=== PATIENT | female | born 1955 | race Caucasian/White ===

== ENCOUNTER → 2024-06-28 06:36 | Outpatient (REF) | payer MEDICARE, BC, SELFPAY | LOC: MRI 3T 06:36 | PROVIDERS: ATTENDING PHYSICIAN Orthopaedic Surgery; FAMILY PHYSICIAN Internal Medicine | DX: M25.512 Pain in left shoulder (principal) | CPT/HCPCS: 73221 ==

== ENCOUNTER → 2024-07-07 10:57 | Outpatient (REF) | payer MEDICARE, BC, SELFPAY | LOC: HWRAD 10:57 | PROVIDERS: ATTENDING PHYSICIAN Internal Medicine | DX: M81.0 Age-related osteoporosis without current pathological fracture (principal) | CPT/HCPCS: 77080 ==

== ENCOUNTER 2024-09-24 08:54 | Emergency (ER) | payer MEDICARE, BC, SELFPAY ==
[2024-09-24 09:05] VITALS: BP 152/84
[2024-09-24 09:26] VITALS: BMI 21.3
[2024-09-24 09:28] VITALS: BP 141/80
--- NOTE | 2024-09-24 09:29 | ED.GENMED ---
History of Present Illness
<Chela Nava MD, Resident - Last Filed: 09/24/24 12:50>
General
Chief Complaint: Rectal Bleeding
Time Seen by Provider: 09/24/24 09:21
History of Present Illness
History of Present Illness:
This is a 69 year old female patient with PMH of HTN, HLD and hypothyriodism who presents to the ED with concerns of rectal bleedings. She states that early this morning she had a bowel movement where she noticed a large amount of bright red blood
in her stool. She has not experienced an similar episode previously. She had no strain or pain on defecation. She did not have any diarrhea or constipation leading up the symptom. She denies any fever, chills or abdominal pain. She states the last
time she had a colonoscopy was in 2019 and was told she had hemorrhoids.
Past History
<Chela Nava MD, Resident - Last Filed: 09/24/24 12:50>
Past History
ED Past Medical History: HTN and Hypothyroidism
ED Past Surgical History: None
Social History
Tobacco: Non-smoker
Alcohol: None
Personal:
Living: with family
Employment: Employed
Family History
Family History: Other (Noncontributory)
Phy Exam
<Chela Nava MD, Resident - Last Filed: 09/24/24 12:50>
General Physical Exam
General Presentation: well appearing and no apparent distress
Cardiovascular Exam
Cardiovascular Exam: regular rate/rhythm and no murmur
Heart Sounds: normal
Pulmonary Exam
Pulmonary Exam: lungs clear, no respiratory distress and no crackles
Gastrointestinal Exam
Gastrointestinal Exam: non tender, soft and non distended
Neurological Exam
Neurological Exam: oriented x3
Musculoskeletal Exam
Musculoskeletal Exam: no edema
Skin Exam
Skin Exam: warm/dry
Psychiatric Exam
Psychiatric Exam: normal mood/affect
Course
<Chela Opal Nava MD, Resident - Last Filed: 09/24/24 12:50>
Orders/Labs/Results
Orders:
Orders
09/24/24 10:34
CBC/With Diff [Complete Blood Count/With Diff] Urgent
CMP [Comprehensive Metabolic Panel] Urgent
Abnormal Lab Results
09/24/24
10:34
WBC 4.3 L 10^3/uL
(4.8-10.8)
RBC 3.81 L 10^6/uL
(4.20-5.40)
MCH 31.5 H pg
(27.0-31.0)
MCHC 32.3 L g/dL
(33.0-37.0)
Absolute Lymphs (auto) 0.7 L 10^3/uL
(1.2-3.4)
Lymphocytes % 15.5 L %
(20.5-51.1)
Carbon Dioxide 31 H mmol/L
(22-30)
BUN 23 H mg/dl
(7-17)
09/24/24 10:34
09/24/24 10:34
Vital Signs
Initial and Last Documented VS:
Initial Vital Signs
Temp Pulse Resp BP Pulse Ox
98.4 F 81 16 152/84 99
09/24/24 09:05 09/24/24 09:05 09/24/24 09:05 09/24/24 09:05 09/24/24 09:05
Last Documented Vital Signs
Temp Pulse Resp BP Pulse Ox
98.4 F 74 16 124/66 98
09/24/24 09:05 09/24/24 11:57 09/24/24 11:57 09/24/24 11:57 09/24/24 11:57
<Manuela Fairbanks MD - Last Filed: 09/24/24 14:02>
Orders/Labs/Results
Orders:
Orders
09/24/24 10:34
CBC/With Diff [Complete Blood Count/With Diff] Urgent
CMP [Comprehensive Metabolic Panel] Urgent
Abnormal Lab Results
09/24/24
10:34
WBC 4.3 L 10^3/uL
(4.8-10.8)
RBC 3.81 L 10^6/uL
(4.20-5.40)
MCH 31.5 H pg
(27.0-31.0)
MCHC 32.3 L g/dL
(33.0-37.0)
Absolute Lymphs (auto) 0.7 L 10^3/uL
(1.2-3.4)
Lymphocytes % 15.5 L %
(20.5-51.1)
Carbon Dioxide 31 H mmol/L
(22-30)
BUN 23 H mg/dl
(7-17)
09/24/24 10:34
09/24/24 10:34
Vital Signs
Initial and Last Documented VS:
Initial Vital Signs
Temp Pulse Resp BP Pulse Ox
98.4 F 81 16 152/84 99
09/24/24 09:05 09/24/24 09:05 09/24/24 09:05 09/24/24 09:05 09/24/24 09:05
Last Documented Vital Signs
Temp Pulse Resp BP Pulse Ox
98.4 F 74 16 124/66 98
09/24/24 09:05 09/24/24 11:57 09/24/24 11:57 09/24/24 11:57 09/24/24 11:57
<Chela Opal Nava MD, Resident - Last Filed: 09/24/24 12:50>
*Critical Care Note
Total Time (30-74mins, 75-104mins- exclusive of procedures): Not Applicable
<Chela Nava MD, Resident - Last Filed: 09/24/24 12:50>
Update Note
Update Note:
Patient was afebrile and hemodynamically stable on exam. No signs of active bleeding. CBC/CMP without any acute abnormalities. After observation, patient did not have any signs of active bleeding and no furher bloody stool episodes. GI front end software engineer
and GI head control clerk made aware of patient for follow up appt. She is stable for discharge with instructions to follow up with GI for further care and management.
ED Attending Note
<Chela Nava MD, Resident - Last Filed: 09/24/24 12:50>
-
Portions of this chart may have been created with voice recognition software.� Occasional wrong word or��sound alike� substitutions may have occurred due to the inherent limitations of voice recognition software.
<Manuela Fairbanks MD - Last Filed: 09/24/24 14:02>
ED Attending Note
Patient seen and examined by attending physician: Yes
I performed a history and physical exam of patient and discussed management with resident, I reviewed resident's note and agree with documented findings and plan of care.: Yes
ED Attending Note:
Patient appears well and comfortable. She denies lightheadedness, chest pain or shortness of breath. She is on no blood thinners including aspirin and Plavix. She reports 1 episode of bloody loose bowel movement that occurred at 7:30 AM this
morning. Since then, she has had no further bleeding. On exam, she is breathing comfortably and heart sounds regular. Abdomen is soft and nontender throughout. On rectal exam, patient does have an external hemorrhoid but it is not bloody. No
active bleeding in rectal vault on rectal exam. We will get some basic blood work. If patient continues to have no further bleeding, I feel she could safely go home with prompt GI follow-up.
Discharge Plan
Departure
Patient Disposition: Home (Routine Discharge)
Date of Disposition: 09/24/24
Time of Disposition: 11:48
Patient with high blood pressure during this ER visit?: Yes
Discharge Problem:
Hemorrhoids
Prescriptions:
No Action
levothyroxine [Synthroid] 88 mcg Tablet
88 mcg PO DAILY
lisinopril 5 mg Tablet
5 mg PO DAILY
atorvastatin 10 mg tablet
10 mg PO DAILY
boron 6 mg Tablet
250 mg PO DAILY
Theragen Tablet
1 tab PO DAILY
ibuprofen [Advil] 200 mg Tablet
400 mg PO Q8HPRN PRN (Reason: mild pain)
cholecalciferol (vitamin D3) [Vitamin D3] 25 mcg (1,000 unit) Tablet
25 mcg PO DAILY
Referrals:
Bryon Bernstein MD [Family Provider] -
Demetri Louise DO [Active] -
Activity Restrictions/Additional Instructions:
If experiencing any symptoms such as severe abdominal pain, worsening rectal bleeding or vomiting please return to the ER. Follow up with GI doctor for further care of hemorrhoids.
Interventions
Interventions:
*Risk Screen - Suicide Last Done: 09/24/24 09:06
*Neglect/Abuse Screening Last Done: 09/24/24 09:06
*ED COVID-19 Vaccine History Last Done: 09/24/24 09:24
*Nursing Disposition Last Done: 09/24/24 11:57
KN-[id number] Assessment Last Done: 09/24/24 09:25
ED- Cardiac Assessment Last Done: 09/24/24 09:30
ED- Pulmonary Assessment Last Done: 09/24/24 09:30
Discharge Date and Time
Discharge Date/Time: 09/24/24 12:00
Print Language: [id number]
[2024-09-24 10:00] VITALS: BP 150/82
[2024-09-24 10:51] LABS: % Basophils 0.9 % (0-2); % Eosinophils 3.3 % (0-6); % Immature Granulocytes 0.5 % (0-0.5); % Lymphocytes 15.5 % (20.5-51.1); % Monocytes 8.7 % (1.7-9.3); % Neutrophils 71.1 % (42.2-75.2); Absolute Eosinophils 0.1 10^3/uL (0-0.7); Absolute Lymphocytes 0.7 10^3/uL (1.2-3.4); Absolute Monocytes 0.4 10^3/uL (0.1-0.6); Hematocrit 37.2 % (37.0-47.0); Mean Corp Hgb Conc. 32.3 g/dL (33.0-37.0); Mean Corpuscular Hgb 31.5 pg (27.0-31.0); Mean Corpuscular Volume 97.6 fL (81.0-99.0); Mean Platelet Volume 8.6 fL (7.4-10.4); Nucleated Red Blood Cells % 0 %; Platelet Count 252 10^3/uL (130-400); Red Blood Cell Count 3.81 10^6/uL (4.20-5.40); Red Cell Dist. Width 12.4 % (11.5-14.5); White Blood Cell Count 4.3 10^3/uL (4.8-10.8)
[2024-09-24 11:00] VITALS: BP 124/66
[2024-09-24 11:05] LABS: ALT (SGPT) 20 U/L (0-35); AST (SGOT) 31 U/L (14-36); Albumin 4.1 g/dl (3.5-5.0); Alkaline Phosphatase 63 U/L (38-126); Blood Urea Nitrogen 23 mg/dl (7-17); Calcium 9.5 mg/dl (8.4-10.2); Carbon Dioxide 31 mmol/L (22-30); Chloride 106 mmol/L (98-107); Estimated Creatinine Clearance 51 ml/min; Glucose 99 mg/dl (70-99); Potassium 4.8 mmol/L (3.5-5.1); Sodium 142 mmol/L (135-145); Total Bilirubin 0.5 mg/dl (0.2-1.3); Total Protein 6.4 g/dl (6.3-8.2); eGFR > 60.00
[2024-09-24 11:57] VITALS: BP 124/66
== END 2024-09-24 12:00 | disposition home or self-care (01) ==
LOC: EMR 08:54
PROVIDERS: Student in an Organized Health Care Education/Training Program; EMERGENCY PHYSICIAN Emergency Medicine; FAMILY PHYSICIAN Specialist
DX: K64.4 Residual hemorrhoidal skin tags (principal); E03.9 Hypothyroidism, unspecified; I10 Essential (primary) hypertension; E78.5 Hyperlipidemia, unspecified
CPT/HCPCS: 99283; 80053; 85025

== ENCOUNTER 2024-11-04 06:14 | Day surgery (SDC) | payer MEDICARE, BC, SELFPAY | END 2024-11-04 14:36 | disposition home or self-care (01) | LOC: GI 06:14 | PROVIDERS: ATTENDING PHYSICIAN Internal Medicine | DX: K92.1 Melena (principal); K57.30 Diverticulosis of large intestine without perforation or abscess without bleeding; D49.0 Neoplasm of unspecified behavior of digestive system; D12.0 Benign neoplasm of cecum | CPT/HCPCS: 45380; 88305 ==

== ENCOUNTER → 2024-11-15 12:02 | Outpatient (REF) | payer MEDICARE, BC, SELFPAY | LOC: SDSPAT 12:02 | PROVIDERS: ATTENDING PHYSICIAN Surgery; FAMILY PHYSICIAN Internal Medicine | DX: C21.8 Malignant neoplasm of overlapping sites of rectum, anus and anal canal (principal) | CPT/HCPCS: 36415; 93005 ==

== ENCOUNTER 2024-11-17 06:23 | Day surgery (SDC) | payer MEDICARE, BC, SELFPAY ==
[2024-11-15 13:04] VITALS: BMI 19.5
[2024-11-17 07:45] VITALS: BP 141/85
[2024-11-17] MEDS: NORMOSOL-R/PLASMALYTE-A 1000 IV (07:55)
[2024-11-17 07:57] VITALS: BMI 19.5
[2024-11-17] MEDS: TYLENOL 1000 MG PO (08:03)
[2024-11-17 09:35] VITALS: BP 143/72
[2024-11-17 09:38] VITALS: BP 143/67
[2024-11-17 09:45] VITALS: BP 141/68
[2024-11-17 10:00] VITALS: BP 141/70
== END 2024-11-17 11:05 | disposition home or self-care (01) ==
LOC: SDS 06:23
PROVIDERS: ATTENDING PHYSICIAN Surgery; FAMILY PHYSICIAN Internal Medicine
DX: C21.8 Malignant neoplasm of overlapping sites of rectum, anus and anal canal (principal)
CPT/HCPCS: 45990; 88307; 88341; 88342

== ENCOUNTER → 2024-11-30 09:06 | Outpatient (REF) | payer MEDICARE, BC, SELFPAY | LOC: RAD 09:06 | PROVIDERS: ATTENDING PHYSICIAN Surgery; FAMILY PHYSICIAN Internal Medicine | DX: C21.0 Malignant neoplasm of anus, unspecified (principal) | CPT/HCPCS: 71260; 74160; Q9967 ==

== ENCOUNTER → 2024-12-01 11:48 | Outpatient (REF) | payer MEDICARE, BC, SELFPAY | LOC: MRI 3T 11:48 | PROVIDERS: ATTENDING PHYSICIAN Surgery; FAMILY PHYSICIAN Internal Medicine | DX: C21.0 Malignant neoplasm of anus, unspecified (principal) | CPT/HCPCS: 72197; A9575 ==

== ENCOUNTER 2024-12-15 06:05 | Day surgery (SDC) | payer MEDICARE, BC, SELFPAY ==
[2024-12-15] VITALS (7 sets, daily range): BP systolic 114–131; BP diastolic 71–91
[2024-12-15] MEDS: TYLENOL 1000 MG PO (06:31)
[2024-12-15] MEDS: NORMOSOL-R/PLASMALYTE-A 1000 IV (06:31)
== END 2024-12-15 09:35 | disposition home or self-care (01) ==
LOC: SDS 06:05
PROVIDERS: ATTENDING PHYSICIAN Surgery
DX: C21.0 Malignant neoplasm of anus, unspecified (principal)
CPT/HCPCS: 36561; 71045; 76000; C1788

== ENCOUNTER 2025-04-13 06:21 | Day surgery (SDC) | payer MEDICARE, BC, SELFPAY ==
[2025-04-13 10:11] VITALS: BMI 17.7
[2025-04-13 10:12] VITALS: BP 120/58; BMI 17.7
[2025-04-13] MEDS: TYLENOL 1000 MG PO (10:24)
[2025-04-13] MEDS: NORMOSOL-R/PLASMALYTE-A 1000 IV (10:24)
[2025-04-13 12:24] VITALS: BP 99/59
[2025-04-13 12:30] VITALS: BP 100/50
[2025-04-13 12:45] VITALS: BP 103/53
[2025-04-13 13:00] VITALS: BP 117/59
[2025-04-13 13:15] VITALS: BP 130/81
== END 2025-04-13 13:38 | disposition home or self-care (01) ==
LOC: SDS 06:21
PROVIDERS: ATTENDING PHYSICIAN Surgery
DX: Z85.048 Personal history of other malignant neoplasm of rectum, rectosigmoid junction, and anus (principal); Z92.21 Personal history of antineoplastic chemotherapy; Z92.3 Personal history of irradiation
CPT/HCPCS: 36590

== ENCOUNTER → 2025-08-18 13:19 | Outpatient (REF) | payer MEDICARE, BC, SELFPAY | LOC: HWWDC 13:19 | PROVIDERS: ATTENDING PHYSICIAN Internal Medicine | DX: Z12.39 Encounter for other screening for malignant neoplasm of breast (principal) | CPT/HCPCS: 77063; 77067 ==